=== PATIENT | male | born 1970 | race Caucasian/White ===

== ENCOUNTER → 2017-02-07 | Outpatient (CLI) | payer OTHER | LOC: BRMIMAGING 14:26 | PROVIDERS: ATTEND Family Medicine | DX: R35.0 Frequency of micturition (principal); R35.1 Nocturia; N50.82 Scrotal pain | CPT/HCPCS: 76870-PO ==

== ENCOUNTER 2017-02-09 14:54 | Emergency (ER) | payer OTHER ==
[2017-02-09 15:00] VITALS: TEMP 98.4
--- NOTE | 2017-02-09 15:15 | EDPHY ---
HPI/HX/ROS/PE/MDM Narrative: CHIEF COMPLAINT: Low back pain HPI: The patient is a 46 y/o male who complains of low back pain for one month. Several months ago he had waxing and waning left testicular pain, but the pain became more regular recently. One month ago his back pain began, which was predominantly on the left side, but this pain has also become more regular recently. 1-2 weeks ago he began to feel nauseas and overall ill. On Friday, 4 days ago, he saw his PCP and had a prostate exam. His doctor found that his prostate was enlarged. On Friday, 2 days ago, he had a testicular ultrasound preformed, which was negative. Yesterday, he had a subjective fever of 38.3. He also notes he has had more frequent urination recently. Denies recent travel, abdominal pain, weakness, chills, painful urination or other pertinent symptoms. Portions of this note were transcribed by an ED scribe. I personally performed the history, physical exam, and medical decision making; and confirm the accuracy of the information in the transcribed note. REVIEW OF SYSTEMS: Aside from elements discussed in the HPI, a comprehensive 10-point review of systems was reviewed and is negative. PMH: Slipped disc in 2000 Appendectomy SOCIAL HISTORY: Originally from [facility] at [facility] Lives in [place] PHYSICAL EXAM: General:Patient is alert, in no acute distress. ENT:Eyes are normal to inspection. ENT inspection normal. Neck: Normal inspection. Full range of motion. Respiratory:No respiratory distress. Breath sounds normal bilaterally. Cardiovascular: Regular rate and rhythm. Strong peripheral pulses. Normal cap refill. Abdomen:The abdomen is nontender to palpation. There are no peritoneal signs. There are normal bowel sounds. Back: Normal to inspection. No tenderness to palpation. Skin: Normal color. No rash. Warm and dry. Extremities: Normal appearance. Full range of motion. Neuro: Oriented x3. Normal motor function. Normal sensory function. ED Course: The patient is a 46 y/o male who presents with left low back pain. He saw his PCP on Friday, 4 days ago, who found an enlarged prostate on exam. He also had a testicular ultrasound preformed on Friday, 2 days ago, which was negative. He was subjectively febrile yesterday with a temperature of 38.3. His physical exam is normal. Plan on labs, IV, 1L IV NS, and an abdominal CT. 1647: Spoke with Dr. Avery, radiologist; he reports the patients abdominal CT is negative. 1722: Reassessed patient and discussed negative laboratory and imaging results. Return precautions provided; patient is comfortable with this plan. MDM: This patient presents with several days of left testicle pain, flank pain, malaise and low grade fever. His workup in the ED is negative. I reviewed his US and labs performed as an outpatient which are negative for torsion, mass, epidiymitis or abnormal lab. CTAP here is negative for diverticulitis, bowel obstruction or kidney stone. No signs of UTI. The patient is comfortable with plan to be discharged home with outpatient follow-up. - Data Points Imaging Results: Imaging Impressions Abdomen CT 02/09/17 15:37 Impression: 1. No acute findings in the abdomen or pelvis. 2. Moderate stool in the proximal colon. 3. Indeterminate hepatic hypodensities, too small to characterize. Findings discussed with Matthew Davis MD on February 09, 2017 at 1646 hours. Imaging: Discussed imaging studies w/ correctional corporal Radiologist, I viewed and interpreted images myself Laboratory Results: Laboratory Results 02/09/17 15:50 02/09/17 02/09/17 02/09/17 16:50 15:50 15:44 WBC 6.16 10^3/uL 10^3/uL (3.80-9.50) RBC 4.76 10^6/uL 10^6/uL (4.40-6.38) Hgb 15.0 g/dL g/dL (13.7-17.5) POC Hgb 15.6 gm/dL gm/dL (13.7-17.5) Hct 44.0 % % (40.0-51.0) POC Hct 46 % % (40-51) MCV 92.4 fL fL (81.5-99.8) MCH 31.5 pg pg (27.9-34.1) MCHC 34.1 g/dL g/dL (32.4-36.7) RDW 12.4 % % (11.5-15.2) Plt Count 283 10^3/uL 10^3/uL (150-400) MPV 9.4 fL fL (8.7-11.7) Neut % (Auto) 69.1 % % (39.3-74.2) Lymph % (Auto) 21.3 % % (15.0-45.0) [place] % (Auto) 6.7 % % (4.5-13.0) Eos % (Auto) 1.6 % % (0.6-7.6) Baso % (Auto) 1.0 % % (0.3-1.7) Nucleat RBC Rel Count 0.0 % % (0.0-0.2) Absolute Neuts (auto) 4.26 10^3/uL 10^3/uL (1.70-6.50) Absolute Lymphs (auto) 1.31 10^3/uL 10^3/uL (1.00-3.00) Absolute Monos (auto) 0.41 10^3/uL 10^3/uL (0.30-0.80) Absolute Eos (auto) 0.10 10^3/uL 10^3/uL (0.03-0.40) Absolute Basos (auto) 0.06 10^3/uL 10^3/uL (0.02-0.10) Absolute Nucleated RBC 0.00 10^3/uL 10^3/uL (0-0.01) Immature Gran % 0.3 % % (0.0-1.1) Immature Gran # 0.02 10^3/uL 10^3/uL (0.00-0.10) POC Sodium 141 mEq/L mEq/L (134-144) POC Potassium 3.8 mEq/L mEq/L (3.3-5.0) POC Chloride 104 mEq/L mEq/L (97-110) POC BUN 19 mg/dL mg/dL (7-23) POC Creatinine 0.8 mg/dL mg/dL (0.7-1.3) POC Glucose 105 mg/dL H mg/dL (70-100) Urine Color YELLOW Urine Appearance CLEAR Urine pH 6.0 (5.0-7.5) Ur Specific [place] > 1.035 H (1.002-1.030) Urine Protein NEGATIVE (NEGATIVE) Urine Ketones NEGATIVE (NEGATIVE) Urine Blood NEGATIVE (NEGATIVE) Urine Nitrate NEGATIVE (NEGATIVE) Urine Bilirubin NEGATIVE (NEGATIVE) Urine Urobilinogen NEGATIVE EU EU (0.2-1.0) Ur Leukocyte Esterase NEGATIVE (NEGATIVE) Urine Glucose NEGATIVE (NEGATIVE) Medications Given: Discontinued Medications Sodium Chloride (Ns) 1,000 mls @ 0 mls/hr IV EDNOW ONE; Wide Open PRN Reason: Protocol Stop: 02/09/17 15:37 Last Admin: 02/09/17 15:46 Dose: 1,000 mls Point of Care Test Results: 02/09/17 15:44 POC Sodium 141 POC Potassium 3.8 POC Chloride 104 POC BUN 19 POC Creatinine 0.8 POC Glucose 105 H General Time Seen by Provider: 02/09/17 15:14 Initial Vital Signs: Initial Vital Signs Temperature (C) 36.9 C 02/09/17 14:57 Heart Rate 64 02/09/17 14:57 Respiratory Rate 18 02/09/17 14:57 Blood Pressure 141/85 H 02/09/17 14:57 O2 Sat (%) 95 02/09/17 14:57 O2 Delivery Mode Room Air Allergies/Adverse Reactions: No Known Allergies Allergy (Unverified 02/09/17 14:56) Home Medications: Medication Instructions Recorded Unknown Antibiotic 02/09/17 Departure - Departure Disposition: Home, Routine, Self-Care Clinical Impression: Abdominal pain Qualifiers: Abdominal location: lower abdomen, unspecified Qualified Code(s): R10.30 - Lower abdominal pain, unspecified Condition: Good Instructions: Abdominal Pain (ED) Additional Instructions: Follow-up with your primary doctor in the next week. Return to the Emergency Department for severe vomiting, nausea, difficulty urinating, weakness, fever or other concerns. Referrals: Paul Damon MD [Primary Care Provider] - As per Instructions Report Scribed for: Matthew Davis Report Scribed by: Esperanza Mercer Date of Report: 02/09/17 Time of Report: 15:15
[2017-02-09] MEDS ORDERED: NS 1,000 ML IV ONE (15:36)
[2017-02-09] MEDS ORDERED: IOPAMIDOL (ISOVUE-300) 100 ML BTL ONE (15:59)
[2017-02-09 16:03] LABS: % IMMATURE GRANULYOCYTES 0.3 % (0.0-1.1); ABSOLUTE IMMATURE GRANULOCYTES 0.02 10^3/uL (0.00-0.10); ADD DIFF? NO; ADD MORPH? NO; ADD SCAN? NO; ATYPICAL LYMPHOCYTE FLAG 10 (0-99); FRAGMENT RBC FLAG 0 (0-99); LEFT SHIFT FLG 0 (0-99); LIPEMIA HEMOLYSIS FLAG 90 (0-99); MEAN CELL HEMOGLOBIN 31.5 pg (27.9-34.1); MEAN CELL HEMOGLOBIN CONCENTR. 34.1 g/dL (32.4-36.7); MEAN CELL VOLUME 92.4 fL (81.5-99.8); MEAN PLATELET VOLUME 9.4 fL (8.7-11.7); PLATELET CLUMPS FLAG 30 (0-99); PLATELET COUNT 283 10^3/uL (150-400); RED BLOOD CELL COUNT 4.76 10^6/uL (4.40-6.38); RED CELL DISTRIBUTION WIDTH 12.4 % (11.5-15.2)
[2017-02-09 17:02] LABS: COLOR YELLOW; LEUKOCYTE ESTERASE,URINE NEGATIVE (NEGATIVE); NITRITE,URINE NEGATIVE (NEGATIVE)
[2017-02-09 17:33] VITALS: BP 117/82; PULSE 81; RESP 16; O2SAT 98
== END 2017-02-09 17:33 | disposition home or self-care (01) ==
PROC: 3E0337Z Introduction of Electrolytic and Water Balance Substance into Peripheral Vein, Percutaneous Approach (ICD-10-PCS; principal; 2017-02-09)
DX: R10.30 Lower abdominal pain, unspecified (principal); E86.9 Volume depletion, unspecified
CPT/HCPCS: 82947-QW; Q9967